=== PATIENT | male | born 1995 | race African-American/Black ===

== ENCOUNTER 2016-12-11 01:02 | Emergency (ER) | payer OTHER ==
[~2016-12-11] VITALS: Ht 185.4 cm; Wt 98.0 kg
[~2016-12-11 01:02] MED LIST: BACT800T5 PO; CEPH500C3 PO; INFL100P IV
[2016-12-11 01:04] VITALS: BP 144/76; PULSE 60; RESP 16; TEMP 97.8; O2SAT 100
[2016-12-11] MEDS ORDERED: CYCL1TAB29 PO (02:16)
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
== END 2016-12-11 02:31 | disposition home or self-care (01) ==
LOC: NEPB 01:02
DX: S39.012A Strain of muscle, fascia and tendon of lower back, initial encounter (principal); V49.50XA Passenger injured in collision with unspecified motor vehicles in traffic accident, initial encounter; Y92.410 Unspecified street and highway as the place of occurrence of the external cause
CPT/HCPCS: 99283